=== PATIENT | female | born 1970 | race Caucasian/White ===

== ENCOUNTER 2017-11-07 02:59 | Emergency (ER) | payer OTHER ==
[~2017-11-07] VITALS: Ht 157.5 cm; Wt 136.1 kg
[~2017-11-07 02:59] MED LIST: ADVAIR 250-501 EACH; ADVAIR 250-501 EACH IH; ADVAIR 250-501 EACH INH; ALBUTEROL2.5 MG/3 M; ALBUTEROL2.5 MG/3 M INH; AMLODIPINE BESYL5 MG PO; B-12250 MCG PO; BENTYL10 MG PO; CELEXA20 MG PO; CENTRUM SILVER1 EAC1; CENTRUM SILVER1 EAC3 PO; COMBIVENT RESPIM4 GM IH; CYMBALTA30 MG PO; EFFEXOR XR150 MG PO; FLAGYL250 MG PO; GABAPENTIN100 MG PO; GABAPENTIN400 MG PO; GEODON80 MG PO; HYDROCHLOROTHIA25 MG PO; IBUPROFEN600 MG PO; IMODIUM2 MG PO; INVEGA9 MG PO; LATUDA40 MG PO; LATUDA80 MG PO; LEVAQUIN500 MG PO; LEVOFLOXACIN500 MG PO; LEVOTHROID125 MCG PO; LEVOTHYROXINE125 MCG PO; LEVOXYL125 MCG; LIDOCREAM5 GM; LOPERAMIDE2 MG PO; LORAZEPAM0.5 MG PO; LORAZEPAM1 MG PO; MAGNEBIND 4001 EACH PO; MEDROL4 MG/DOSE-; NEXIUM40 MG PO; PANTOPRAZOLE SO40 MG PO; PHENERGAN SUPP25 MG PR; POTASSIUM GLUC500 GM PO; POTASSIUM GLUCO99 MG PO; PREDNISONE10 MG PO; PREDNISONE20 MG PO; PROAIR HFA INH8.5 GM; PROAIR HFA INH8.5 GM INH; PROMETHAZINE HC25 M1 PO; RISPERIDONE1 MG PO; SEROQUEL25 MG PO; SPIRIVA18 MCG INH; TEMAZEPAM30 MG PO; TOPAMAX200 MG PO; TRICOR48 MG PO; TYLENOL WITH C1 EACH PO; ULTRAM50 MG PO; VITAMIN D32000 UNI1 PO
--- OUTSIDE RECORDS SUMMARY | 2017-11-07 03:02 | XMS REPORT ---
Author Author [facility] Address Unknown Phone Unavailable Care Team Providers Care Donor Services Team Leader Name Role Phone MARY GARNER Unavailable Unavailable Problems This patient has no known problems. Allergies, Adverse Reactions, Alerts This patient has no known allergies or adverse reactions. Medications This patient has no known medications. Results Test Description Test Time Test Comments Text Results Atomic Results Result Comments CT BRAIN WO [place] [address] Patient Name: ROMEL HARP MR #: [id number] : 1970 Age/Sex: 47/F Req #: [id number] Adm Physician: Ordered by: MARY GARNER MD Report #: [id number] Location: ER Room/Bed: Procedure: [id number] CT/CT BRAIN WO Exam Date: 05/23/17 Exam Time: 0700 REPORT STATUS: Signed EXAMINATION: Head CT HISTORY: Status post fall, severe speech COMPARISON: None. TECHNIQUE: Multidetector axial images were obtained without contrast from the foramen magnum to the vertex . The images were reconstructed using brain and bone algorithms. Thin section brain images were reformatted into coronal and sagittal planes. Intravenous contrast: None. Motion/streaking artifact limits the evaluation of the skull base and posterior cranial fossa. FINDINGS: Parenchyma: 1. No abnormal densities. 2. No mass or hemorrhage. No CT evidence of acute territorial vascular insult. Extra-axial spaces:No abnormal density. No extra-axial fluid collections Brain volume: Normal for age. Ventricles: No hydrocephalus or displacement. Vessels: No density suggestive of thrombus. Mildly prominent right frontal convexity hyperdense vessel corresponds to a cortical draining vein, the increased density is nonspecific and may represent an artifact, elevated hematocrit, or thrombosis only in the appropriate clinical setting. Dural sinuses: No abnormal density. Extra-axial spaces: No abnormal density. Foramen magnum: No mass, Chiari malformation, or basilar invagination. Sella: No obvious mass. Paranasal/mastoid sinuses: Imaged portions unremarkable. Skull/Scalp: No lytic or blastic lesions. No fractures. IMPRESSION: 1. No acute intracranial hemorrhage or acute territorial cortical vascular insult. 2. Questionable hyperdense right frontal draining vein as detailed above. Signed by: Dr. Jimena Hadley M.D. on 05/23/2017 7:20 AM Dictated By: JIMENA HADLEY MD 9 Transcribed By: MARU on 05/23/17719 COPY TO: AMRY GARNER MD CHEST SINGLE (PORTABLE) [place] [address] Patient Name: ROMEL HARP MR #: [id number] : 1970 Age/Sex: 47/F Req #: [id number] Adm Physician: Ordered by: MARY GARNER MD Report #: [id number] Location: ER Room/Bed: Procedure: [id number] DX/CHEST SINGLE (PORTABLE) Exam Date: 05/23/17 Exam Time: 0700 REPORT STATUS: Signed PROCEDURE: CHEST SINGLE (PORTABLE) COMPARISON: [facility], DX, CHEST SINGLE (PORTABLE), 08/07/2016, 19:55. INDICATIONS: cough; short of breath; a-fib FINDINGS: LUNGS: No consolidations or edema. Right basilar opacity likely secondary to atelectasis. PLEURA: No effusions or pneumothorax. HEART T MEDIASTINUM: The heart is prominent likely in part due to the portable technique. BONES T SOFT TISSUES: No acute findings. CONCLUSION: Cardiac prominence with no acute thoracic abnormality. Hector Galdamez D.O. Dictated by: Hector Galdamez D.O. on 05/23/2017 at 7:29 Electronically approved by: Hector Galdamez D.O. on 05/23/2017 at 7:29 Dictated By: HECTOR GALDAMEZ DO 8 Transcribed By: RADHA on 05/23/17728 COPY TO: MARY GARNER MD
[2017-11-07] MEDS ORDERED: METHYLPREDNISOLONE SOD SUCC 125 MG/2ML VIAL IV STA (03:06)
[2017-11-07] MEDS ORDERED: ALBUTEROL SULF 0.083% NEB SOLN 3 ML NEB NEB STA (03:06)
[2017-11-07] MEDS ORDERED: IPRATROPIUM BROMIDE 0.02% 2.5 ML NEB NEB ONE (03:15)
[2017-11-07 04:20] LABS: BASOPHILS % 0.7 % (0.0-1.0); EOSINOPHILS # (AUTO) 0.2 (0.0-0.4); EOSINOPHILS % 3.2 % (0.0-6.0); HEMATOCRIT 44.6 % (34.2-44.1); LYMPHOCYTES # (AUTO) 1.7 (1.0-3.2); LYMPHOCYTES % 27.5 % (18.0-39.1); MEAN CORPUSCULAR HEMOGLOBIN 29.3 pg (28-32); MEAN CORPUSCULAR HGB CONC 31.4 g/dL (31-35); MEAN CORPUSCULAR VOLUME 93.3 fL (81-99); MONOCYTES # (AUTO) 0.5 (0.2-0.8); MONOCYTES % 8.1 % (4.4-11.3); NEUTROPHILS # (AUTO) 3.6 (2.1-6.9); NEUTROPHILS % 60.2 % (38.7-80.0); PLATELET COUNT 131 x10e3/uL (140-360); RED BLOOD COUNT 4.78 x10e6/uL (3.6-5.1); RED CELL DISTRIBUTION WIDTH 13.2 % (11.7-14.4)
[2017-11-07 04:28] LABS: CLARITY,URINE CLEAR (CLEAR); COLOR,URINE YELLOW (YELLOW); KETONES,URINE NEGATIVE (NEGATIVE); LEUKOCYTE ESTERASE ,URINE NEGATIVE (NEGATIVE); NITRITE,URINE NEGATIVE (NEGATIVE); PROTEIN,URINE DIPSTICK NEGATIVE (NEGATIVE)
[2017-11-07 04:29] LABS: BILIRUBIN,URINE NEGATIVE (NEGATIVE); URINE UROBILINOGEN 0.2 mg/dL (0.2 - 1)
[2017-11-07 04:30] LABS: INR 0.99; PARTIAL THROMBOPLASTIN TIME 25.2 seconds (23.8-35.5); PROTHROMBIN TIME 12.3 seconds (11.9-14.5)
[2017-11-07 04:40] LABS: ALANINE AMINOTRANSFERASE 23 IU/L (0-55); ALBUMIN 3.5 g/dL (3.5-5.0); ALBUMIN/GLOBULIN RATIO 0.9 (0.8-2.0); ALKALINE PHOSPHATASE 71 IU/L (40-150); ANION GAP 13.9 mmol/L (8-16); BACTERIA,URINE RARE /HPF; BLOOD UREA NITROGEN 9 mg/dL (7-26); BUN/CREATININE RATIO 12 (6-25); CALCIUM 9.7 mg/dL (8.4-10.2); CARBON DIOXIDE 29 mmol/L (22-29); CHLORIDE 106 mmol/L (98-107); CREATINE KINASE 90 IU/L (29-168); CREATININE, SERUM 0.73 mg/dL (0.57-1.11); EPITHELIAL CELLS,URINE FEW /LPF; EST GLOMERULAR FILTRATION RATE > 60 ML/MIN (60-); GLUCOSE 132 mg/dL (74-118); MAGNESIUM 1.8 MG/DL (1.3-2.1); POTASSIUM 3.9 mmol/L (3.5-5.1); SODIUM 145 mmol/L (136-145); WBC,URINE (MAN) 0-5 /HPF (0-5)
[2017-11-07 04:49] LABS: B-TYPE NATRIURETIC PEPTIDE2 < 10.0 pg/mL (0-100)
--- NOTE | 2017-11-07 04:57 | Diagnostic Imaging Report ---
EXAMINATION: CHEST SINGLE (PORTABLE) INDICATION: Cough, shortness of breath, COPD COMPARISON: None FINDINGS: TUBES and LINES: None. LUNGS: Lungs are well inflated. Lungs are clear. There is no evidence of pneumonia or pulmonary edema. PLEURA: No pleural effusion or pneumothorax. HEART AND MEDIASTINUM: Cardiac size is moderately enlarged. BONES AND SOFT TISSUES: No acute osseous lesion. Soft tissues are unremarkable. UPPER ABDOMEN: No free air under the diaphragm. IMPRESSION: 1. No acute thoracic abnormality. 2. Moderate enlargement of the cardiac silhouette Signed by: Dr. Jairo Rodriguez M.D. on 11/07/2017 4:54 AM
[2017-11-07 07:58] VITALS: BP 113/67
== END 2017-11-07 08:33 | disposition home or self-care (01) ==
LOC: ER 02:59
DX: J44.1 Chronic obstructive pulmonary disease with (acute) exacerbation (principal); R00.0 Tachycardia, unspecified; F17.210 Nicotine dependence, cigarettes, uncomplicated; E66.9 Obesity, unspecified; Z68.43 Body mass index [BMI] 50.0-59.9, adult; I51.7 Cardiomegaly; Z99.81 Dependence on supplemental oxygen
CPT/HCPCS: 36415; 71045; 80053; 81001; 82550; 82553; 83605; 83735; 83880; 84484; 85025; 85610; 85730; 87040; 87071; 87205; 93005; 99284